=== PATIENT | female | born 1955 | race Two or more races ===

== ENCOUNTER 2016-05-01 08:41 | Emergency (ER) | payer MEDICAID, MEDICARE ==
--- NOTE | 2016-05-01 09:15 | ER Document Report ---
ED ENT - General Time seen by provider: 09:10 Mode of Arrival: Ambulatory Information source: Patient, Relative TRAVEL OUTSIDE OF THE [place]. IN LAST 30 DAYS: No - HPI Patient complains to provider of: Ear problem, Nose problem, Throat problem Onset: Other - see HPI note Onset/Duration: Gradual, Persistent Pain Level: 5 Location of pain: Ears, Nose, Sinus, Throat Associated symptoms: Congestion, Cough, Ear pain, Fever, Sore throat - General Chief Complaint: Ear Pain Stated Complaint: EAR PAIN Notes: Patient is a 60-year-old Croatian-speaking female presenting to the emergency department with complaints of ear pain, fever, and cold symptoms. Patient has had right-sided ear pain for about one week. Patient had a fever last night. Patient also complains of some congestion, cough, and sore throat. Patient speaks Croatian and her family member is translating. Patient has a history of anxiety, does not smoke, and is on no regular medications. Patient has recently moved back to the area and does not have a regular physician at this time. Patient has no known allergies. (MARY MUÑIZ) - Related Data Allergies/Adverse Reactions: No Known Allergies Allergy (Unverified 05/01/16 08:53) Past Medical History - General Information source: Patient - Social History Smoking Status: Never Smoker Cigarette use (# per day): No Chew tobacco use (# tins/day): No Frequency of alcohol use: None Drug Abuse: None Family History: None Patient has suicidal ideation: No Patient has homicidal ideation: No - Medical History Medical History: Negative Psychiatric Medical History: Reports: Hx Anxiety Surgical Hx: Negative Review of Systems - Review of Systems Constitutional: See HPI, Fever EENT: See HPI, Ear pain, Nose congestion, Throat pain Cardiovascular: No symptoms reported Respiratory: See HPI, Cough Gastrointestinal: No symptoms reported Genitourinary: No symptoms reported Female Genitourinary: No symptoms reported Musculoskeletal: No symptoms reported Skin: No symptoms reported Hematologic/Lymphatic: No symptoms reported Neurological/Psychological: No symptoms reported -: Yes All other systems reviewed and negative Physical Exam - Vital signs Interpretation: Normal - General General appearance: Alert, Other - appears uncomfortable In distress: Mild - HEENT Head: Normocephalic, Atraumatic Eyes: Normal Pupils: PERRL Tympanic membrane: Other - Right TM is bulging and erythematous Left TM is slightly retracted Nasal: Other - sinus congestion Mouth/Lips: Normal Mucous membranes: Normal Pharynx: Erythema. No: Exudate Neck: Normal - Respiratory Respiratory status: No respiratory distress Chest status: Nontender Breath sounds: Nonproductive cough, Rhonchi, Wheezing Chest palpation: Normal - Cardiovascular Rhythm: Regular Heart sounds: Normal auscultation Murmur: No - Abdominal Inspection: Normal Distension: No distension Bowel sounds: Normal Tenderness: Nontender Organomegaly: No organomegaly - Back Back: Normal, Nontender - Extremities General upper extremity: Normal inspection, Normal ROM, Normal strength General lower extremity: Normal inspection, Normal ROM, Normal strength - Neurological Neuro grossly intact: Yes Cognition: Normal Orientation: AAOx4 Gormania Coma Scale Eye Opening: Spontaneous Guevara Coma Scale Verbal: Oriented Gormania Coma Scale Motor: Obeys Commands Gormania Coma Scale Total: 15 Speech: Normal - Psychological Associated symptoms: Normal affect, Normal mood - Skin Skin Temperature: Warm Skin Moisture: Dry - Vital signs Vitals: Temp Pulse Resp BP Pulse Ox 98.6 F 84 18 119/60 96 05/01/16 09:30 05/01/16 09:30 05/01/16 09:30 05/01/16 09:30 05/01/16 09:30 Discharge - Discharge Clinical Impression: Right acute otitis media Upper respiratory tract infection Qualifiers: URI type: unspecified viral URI Qualified Code(s): J06.9 - Acute upper respiratory infection, unspecified Condition: Stable Disposition: HOME, SELF-CARE Additional Instructions: Upper Respiratory Illness You have a viral infection of the respiratory passages -- a "cold." This common infection causes nasal congestion, drainage, and often sore throat and cough. It is caused by a virus and is highly contagious. The disease usually lasts a week or more, though the worst symptoms are usually over in 3 or 4 days. There is no "cure" for the viral infection -- it must run its course. If there is a complication, such as bacterial infection in the nose, sinuses, middle ear, or bronchial tubes, antibiotics may be required, but antibiotics won 't affect the virus. If you smoke, you should STOP!! Drink plenty of fluids. A humidifier may help. An expectorant medication or decongestant may make you more comfortable. Use acetaminophen or ibuprofen for fever or aches. See the doctor if fever persists over two or three days, if there is any significant worsening of your symptoms, or if you simply fail to improve as expected. Otitis Media: You have a middle ear infection (otitis media). This is usually a complication of a cold or sore throat. The middle ear cavity becomes filled with infection. Pressure and stretching of the ear drum cause pain. Antibiotics are required. A 10 day course is usually prescribed. A decongestant may be recommended if you have a "runny nose." You may need anesthetic drops or other pain medication. A follow-up exam may be recommended to make sure the infection has completely cleared. If the ear begins to drain, it means the ear drum has ruptured. This will usually heal spontaneously. However, it means you should keep the ear dry until re-examined by a doctor. Call the physician or return for examination at once if there is severe headache, stiff neck, confusion, increasing fever, or dizziness. You should improve significantly within two days. If you're not better, call the doctor. TAKE THE MEDICATIONS PRESCRIBED. DRINK PLENTY OF FLUIDS. REST. FOLLOW UP WITH A LOCAL MEDICAL DOCTOR IF NOT IMPROVING. RETURN TO THE EMERGENCY ROOM IF ANY NEW OR WORSENING SYMPTOMS. Prescriptions: Amoxicillin Trihydrate [Amoxil 500 mg Capsule] 500 mg PO TID #30 cap Hydrocodone/Acetaminophen [Columbia 5-325 mg Tablet] 1 tab PO Q4 PRN #15 tablet PRN Reason: Prednisone [Deltasone 10 mg Tablet] 10 mg PO ASDIR PRN #21 tablet PRN Reason: Scribe Attestation: 05/01/16 09:19 I personally performed the services described in the documentation, reviewed and edited the documentation which was dictated to the scribe in my presence, and it accurately records my words and actions. (JOSÉ MIGUEL LOMELI) Scribe Documentation - Scribe Written by Juan:: Mary Muñiz 05/01/16 10:00 acting as scribe for :: Aletha
[2016-05-01 09:41] VITALS: BP 119/60
== END 2016-05-01 09:30 | disposition home or self-care (01) ==
LOC: ER 08:41
DX: H66.91 Otitis media, unspecified, right ear (principal); J06.9 Acute upper respiratory infection, unspecified; R50.9 Fever, unspecified
CPT/HCPCS: 99282

== ENCOUNTER → 2016-07-21 | Outpatient (CLI) | payer MEDICARE, MEDICAID | LOC: WI 13:20 | PROVIDERS: ATTEND Family Medicine | DX: Z12.31 Encounter for screening mammogram for malignant neoplasm of breast (principal) | CPT/HCPCS: 77067; G0202 ==

== ENCOUNTER → 2017-07-24 | Outpatient (CLI) | payer MEDICARE, MEDICAID ==
--- NOTE | 2017-07-24 10:10 | WOMENS IMAGING REPORT ---
EXAM DESCRIPTION: BONE DENSITY HIP/SPINE COMPLETED DATE/TIME: 07/24/2017 9:19 am REASON FOR STUDY: OSTEOPOROSIS Z12.31 ENCNTR SCREEN MAMMOGRAM FOR MALIGNANT NEOPLASM OF TISH M81.0 AGE-RELATED OSTEOPOROSIS W/O CURRENT PATHOLOGICAL FRAC COMPARISON: None. TECHNIQUE: Dual-Energy X-ray Absorptiometry (DEXA) of the AP Spine and Hip. LIMITATIONS: None. FINDINGS: LUMBAR SPINE: The bone mineral density (BMD) measured from L1-L4 in the AP projection correlates with a T-score of -3.4, which is osteoporosis as defined by the World Health Organization. HIP: The bone mineral density (BMD) measured in the left hip correlates with a T-score of -1.7, which is o steopenia as defined by the World Health Organization. IMPRESSION: 1. LUMBAR SPINE: OSTEOPOROSIS. 2. HIP: OSTEOPENIA. COMMENT: The World Health Organization defines low BMD as follows: T-score: Normal: Greater than -1.0 Osteopenia: Between -1.0 and -2.5 Osteoporosis: Less than -2.5 without fractures Established osteoporosis: Less than -2.5 with fractures In general, you may wish to consider: Diagnosis Treatment Follow-up DEXA Normal BMD Prevention 2-3 years Osteopenia Prevention/Therapy 1-2 years Osteoporosis Therapy Yearly TECHNICAL DOCUMENTATION: JOB ID: [id number] [employer]- All Rights Reserved Reading location - IP/workstation name: [email or web address]
--- NOTE | 2017-07-24 10:14 | WOMENS IMAGING REPORT ---
EXAM DESCRIPTION: BILAT SCREENING MAMMO W/CAD COMPLETED DATE/TIME: 07/24/2017 9:19 am REASON FOR STUDY: SCREENING MAMMO Z12.31 ENCNTR SCREEN MAMMOGRAM FOR MALIGNANT NEOPLASM OF TISH M81. 0 AGE-RELATED OSTEOPOROSIS W/O CURRENT PATHOLOGICAL FRAC COMPARISON: 2009- 2012, 2016 TECHNIQUE: Standard craniocaudal and mediolateral oblique views of each breast recorded using digita l acquisition. LIMITATIONS: None. FINDINGS: No masses, calcifications or architectural distortion. No areas of suspicion. Read with the assistance of CAD. .[facility] - R2 Cenova Version 1.3 .[facility] Imaging - R2 Cenova Version 1.3 .[facility] - R2 Cenova Version 2.4 .[facility] [place] - R2 Cenova Version 2.4 .ON LICENSE OF [facility] - R2 Form Drafter Version 9.2 IMPRESSION: NORMAL MAMMOGRAM. BIRADS 1. BREAST DENSITY: b. There are scattered areas of fibroglandular density. BIRAD: 1 NEGATIVE RECOMMENDATION: ROUTINE SCREENING COMMENT: The patient has been notified of the results by letter per MQSA requirements. Additional no tification policies are in place for contacting patient with suspicious or incomplete findings. Quality ID #[id number]: The [employer] [place] [employer] recommends an annual screening mammogram for women aged 40 years or over. This facility utilizes a reminder system to ensure that all patients receive reminder letters, and/or direct phone calls for appointments. This includes reminders for routine scr eening mammograms, diagnostic mammograms, or other Breast Imaging Interventions when appropriate. Th is patient will be placed in the appropriate reminder system. The [employer] [place] [employer] (ACR) has developed recommendations for screening MRI of the breast s in certain patient populations, to be used in conjunction with mammography. Breast MRI surveillanc e may be appropriate for women with more than 20% lifetime risk of developing breast cancer as deter mined by genetic testing, significant family history of the disease, or history of mantle radiation f or Hodgkins Disease. ACR Practice Guidelines 2008. TECHNICAL DOCUMENTATION: FINDING NUMBER: (1) ASSESSMENT: (1) JOB ID: [id number] [employer]- All Rights Reserved Reading location - IP/workstation name: [facility]
== END ==
LOC: WI 08:50
PROVIDERS: ATTEND Family Medicine
DX: Z12.31 Encounter for screening mammogram for malignant neoplasm of breast (principal); M81.0 Age-related osteoporosis without current pathological fracture
CPT/HCPCS: 77067; 77080

== ENCOUNTER 2017-08-15 18:50 | Emergency (ER) | payer MEDICARE, MEDICAID ==
[2017-08-15] MEDS ORDERED: LIDOCAINE 4%/TETRACAINE 0.5%/EPI 0.18% 5 ML TOPICAL SOLN TOP ONE (19:11)
[2017-08-15] MEDS ORDERED: DIPH/PERTUSS(ACELL)/TETANUS VAC/PF 0.5 ML SYR (>=10YO) IM ONE (19:16)
--- NOTE | 2017-08-15 19:16 | ER Document Report ---
HPI - HPI Patient complains to provider of: Leg bleeding Onset: This afternoon Onset/Duration: Persistent Pain Level: 3 Context: Patient was shaving her leg this evening and accidentally cut her leg over a spider vein. Patient states wound has continued to bleed for the past hour. Patient denies taking any blood thinning medications or aspirin. Associated Symptoms: Other - Leg wound bleeding Exacerbated by: Denies Relieved by: Denies Similar symptoms previously: No Recently seen / treated by doctor: No - ROS ROS below otherwise negative: Yes Systems Reviewed and Negative: Yes All other systems reviewed and negative - DERM Skin Problems: Laceration Past Medical History - General Information source: Patient, Relative - Social History Smoking Status: Never Smoker Frequency of alcohol use: None Drug Abuse: None Occupation: None Lives with: Family Family History: None Renal/ Medical History: Denies: Hx Peritoneal Dialysis Psychiatric Medical History: Reports: Hx Anxiety Surgical Hx: Negative Vertical Provider Document - CONSTITUTIONAL Agree With Documented VS: Yes Exam Limitations: No Limitations General Appearance: WD/WN, No Apparent Distress - INFECTION CONTROL TRAVEL OUTSIDE OF THE [place] IN LAST 30 DAYS: No - HEENT HEENT: Atraumatic, Normocephalic - NECK Neck: Normal Inspection - RESPIRATORY Respiratory: No Respiratory Distress - CARDIOVASCULAR Pulses: Normal: Dorsalis pedis - MUSCULOSKELETAL/EXTREMETIES Musculoskeletal/Extremeties: TAYLOR VILLEGAS - NEURO Level of Consciousness: Awake, Alert, Appropriate Motor/Sensory: No Motor Deficit - DERM Integumentary: Warm, Dry, Laceration - Superficial laceration to posterior aspect of left leg with capillary bleeding, bleeding able to be controlled with pressure Course - Re-evaluation Re-evalutation: 08/15/17 20:01 Wound cauterized with silver nitrate stick. Bleeding stopped, patient tolerated procedure well. - Vital Signs Vital signs: Temp Pulse Resp BP Pulse Ox 98.4 F 90 17 147/67 H 98 08/15/17 18:55 08/15/17 18:55 08/15/17 18:55 08/15/17 18:55 08/15/17 18:55 Discharge - Discharge Clinical Impression: Superficial laceration Condition: Stable Disposition: HOME, SELF-CARE Instructions: Non-Sutured Laceration ([facility]), Tetanus Immunization Given ([facility]) Additional Instructions: Return immediately for any new or worsening symptoms Followup with your primary care provider, call tomorrow to make a followup appointment Referrals: IVORY GOMEZ, DO [Primary Care Provider] - Follow up as needed
[2017-08-15 20:16] VITALS: BP 140/80
== END 2017-08-15 20:15 | disposition home or self-care (01) ==
LOC: ER 18:50
DX: S81.812A Laceration without foreign body, left lower leg, initial encounter (principal); W27.8XXA Contact with other nonpowered hand tool, initial encounter; Y93.E8 Activity, other personal hygiene; Z23 Encounter for immunization
CPT/HCPCS: 99282; J3490

== ENCOUNTER 2018-01-03 15:54 | Emergency (ER) | payer MEDICARE, MEDICAID ==
[2018-01-03] MEDS ORDERED: MECLIZINE HCL 12.5 MG TABLET PO ONE (16:27)
--- NOTE | 2018-01-03 16:29 | ER Document Report ---
ED Dizziness/Weakness - General Chief Complaint: Dizziness Stated Complaint: DIZZINESS Time Seen by Provider: 01/03/18 16:13 Mode of Arrival: Ambulatory Information source: Patient, Relative Notes: Chief complaint: Feeling dizzy History of complain:( obtained from----patient) 62 years old female with a history of anxiety, depression on medication, from [facility], living [place] this country [place] years, presents today with last 2 days of blurred vision and dizziness, spinning sensation. No ringing in the years, no focal weakness numbness tingling sensation. Denies any nausea vomiting. Denies any palpitation or diaphoresis. Denies any other constitutional symptoms Onset: As above Duration: 2 days Severity: Mild to moderate Quality: Dizzy Context: Unknown unknown Exacerbating factor and relieving factors: Unknown REVIEW OF SYSTEMS: CONSTITUTIONAL : Denies fever, chills, or sweats. Denies recent illness. EENT: Denies eye, ear, throat, or mouth pain or symptoms. Denies nasal or sinus congestion or discharge. Denies throat, tongue, or mouth swelling or difficulty swallowing. CARDIOVASCULAR: Denies chest pain. Denies palpitations or racing or irregular heart beat. Denies ankle edema. RESPIRATORY: Denies cough, cold, or chest congestion. Denies shortness of breath, difficulty breathing, or wheezing. GASTROINTESTINAL: Denies distention. Denies nausea, vomiting, or diarrhea. Denies blood in vomitus, stools, or per rectum. Denies black, tarry stools. Denies constipation. GENITOURINARY: Denies difficulty urinating, painful urination, burning, frequency, blood in urine, or discharge. FEMALE GENITOURINARY: Denies vaginal bleeding, heavy or abnormal periods, irregular periods. Denies vaginal discharge or odor. MUSCULOSKELETAL: Denies back or neck pain or stiffness. Denies joint pain or swelling. SKIN: Denies rash, lesions or sores. HEMATOLOGIC : Denies easy bruising or bleeding. LYMPHATIC: Denies swollen, enlarged glands. NEUROLOGICAL: Denies confusion or altered mental status. Denies passing out or loss of consciousness. Denies dizziness or lightheadedness. Denies headache. Denies weakness or paralysis or loss of use of either side. Denies problems with gait or speech. Denies sensory loss, numbness, or tingling. Denies seizures. PSYCHIATRIC: Denies anxiety or stress. Denies depression, suicidal ideation, or homicidal ideation. ALL OTHER SYSTEMS REVIEWED AND NEGATIVE. PHYSICAL EXAMINATION: GENERAL: Well-appearing, well-nourished and in no acute distress. HEAD: Atraumatic, normocephalic. EYES: Pupils equal round and reactive to light, extraocular movements intact, conjunctiva are normal. ENT: Nares patent, oropharynx clear without exudates. Moist mucous membranes. NECK: Normal range of motion, supple without lymphadenopathy LUNGS: Breath sounds clear to auscultation bilaterally and equal. No wheezes rales or rhonchi. HEART: Regular rate and rhythm without murmurs ABDOMEN: Soft, nontender, nondistended abdomen. No guarding, no rebound. No masses appreciated. Examination of genitals-deferred Musculoskeletal: Normal range of motion, no pitting or edema. No cyanosis. NEUROLOGICAL: Cranial nerves grossly intact. Normal speech, normal gait. Normal sensory, motor exams PSYCH: Normal mood, normal affect. SKIN: Warm, Dry, normal turgor, no rashes or lesions noted. Dictation was performed using [employer] voice recognition software TRAVEL OUTSIDE OF THE [place].S. IN LAST 30 DAYS: No - HPI Notes: Dictated - Related Data Allergies/Adverse Reactions: No Known Allergies Allergy (Verified 01/03/18 15:56) Past Medical History - Social History Smoking Status: Never Smoker Chew tobacco use (# tins/day): No Frequency of alcohol use: None Drug Abuse: None Family History: None, Reviewed & Not Pertinent Patient has suicidal ideation: No Patient has homicidal ideation: No Neurological Medical History: Reports: Hx Migraine Renal/ Medical History: Denies: Hx Peritoneal Dialysis Psychiatric Medical History: Reports: Hx Anxiety Review of Systems - Review of Systems Notes: Dictated Physical Exam - Vital signs Vitals: Temp Pulse Resp BP Pulse Ox 98.6 F 77 16 138/65 H 98 01/03/18 15:58 01/03/18 15:58 01/03/18 15:58 01/03/18 15:58 01/03/18 15:58 - Notes Notes: Dictated Course - Vital Signs Vital signs: Temp Pulse Resp BP Pulse Ox 98.6 F 77 16 138/65 H 98 01/03/18 15:58 01/03/18 15:58 01/03/18 15:58 01/03/18 15:58 01/03/18 15:58 Discharge - Discharge Clinical Impression: Dizziness, 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 Symptoms of stroke can include visual changes, confusion, difficulty with speech, and weakness or numbness of the face, arm, or leg. Some strokes are extremely serious, while others cause hardly any symptoms at all. Not all strokes require hospitalization. The symptoms of stroke usually improve with time. Physical therapy and exercise help you recover. To avoid further episodes, you may be placed on medication to slow blood clotting. This may include aspirin or sometimes other "blood thinning" medicine. Further evaluation is often necessary to see where the blood clots are originating. Call 911 or go to the nearest emergency room at once if you have any stroke symptoms. You should return if there is increasing confusion or inappropriate sleepiness, spreading areas of weakness, increasing headache, decreasing vision, or vomiting. Referrals: IVORY GOMEZ, DO [Primary Care Provider] - Follow up as needed
--- NOTE | 2018-01-03 17:13 | RADIOLOGY REPORT (SQ) ---
EXAM DESCRIPTION: CT HEAD WITHOUT COMPLETED DATE/TIME: 01/03/2018 5:02 pm REASON FOR STUDY: Dizziness COMPARISON: None. TECHNIQUE: Axial images acquired through the brain without intravenous contrast. Images reviewed wi th bone, brain and subdural windows. Additional sagittal and coronal reconstructions were generated. Images stored on PACS. All CT scanners at this facility use dose modulation, iterative reconstruction, and/or weight based d osing when appropriate to reduce radiation dose to as low as reasonably achievable (ALARA). [facility]: Dose Right [facility]: CareDose [facility]: Dose Right [facility]: Teradose 4D [facility]: Smart [employer] RADIATION DOSE: CT Rad equipment meets quality standard of care and radiation dose reduction techniq ues were employed. CTDIvol: 53.2 mGy. DLP: 937 mGy-cm. mGy. LIMITATIONS: None. FINDINGS: VENTRICLES: Normal size and contour. CEREBRUM: No masses. No hemorrhage. No midline shift. No evidence for acute infarction. Normal gra y/white matter differentiation. No areas of low density in the white matter. Subtle high attenuation in the left basal ganglia is most consistent with calcification. CEREBELLUM: There is decreased attenuation the left cerebellar hemisphere. Evolving infarct is suspe cted. EXTRAAXIAL SPACES: No fluid collections. No masses. ORBITS AND GLOBE: No intra- or extraconal masses. Normal contour of globe without masses. CALVARIUM: No fracture. PARANASAL SINUSES: There is chronic appearing mucosal thickening in the left maxillary sinus. Minima l coastal thickening in the right maxillary sinus. SOFT TISSUES: No mass or hematoma. OTHER: No other significant finding. IMPRESSION: 1. Decreased attenuation in the left cerebellar hemisphere evolving infarct is suspecte d. It is possible this is chronic there are no old films available for comparison. EVIDENCE OF ACUTE STROKE: NO. COMMENT: Quality ID # [id number]: Final reports with documentation of one or more dose reduction techniques (e.g., Automated exposure control, adjustment of the mA and/or kV according to patient size, use of iterative reconstruction technique) TECHNICAL DOCUMENTATION: JOB ID: [id number] [email or web address]- All Rights Reserved Reading location - IP/workstation name: [email or web address]
[2018-01-03 17:38] VITALS: BP 129/61
== END 2018-01-03 17:38 | disposition home or self-care (01) ==
LOC: ER 15:54
DX: R42 Dizziness and giddiness (principal); H53.8 Other visual disturbances; Z86.73 Personal history of transient ischemic attack (TIA), and cerebral infarction without residual deficits; F41.9 Anxiety disorder, unspecified; F32.9 Major depressive disorder, single episode, unspecified; Z79.899 Other long term (current) drug therapy
CPT/HCPCS: 99284; 70450; A9270; J3490

== ENCOUNTER 2018-01-06 16:57 | Emergency (ER) | payer MEDICARE, MEDICAID ==
--- NOTE | 2018-01-06 18:16 | ER Document Report ---
ED Medical Screen (RME) - General Chief Complaint: Headache Stated Complaint: WEAKNESS Time Seen by Provider: 01/06/18 17:49 Mode of Arrival: Ambulatory Information source: Patient, [facility] Records Notes: 62-year-old female presents for the second time this week with complaint of head pressure and forehead numbness. She was seen on January 03, 2018 and discharged home with a diagnosis of stroke from pit. CT scan was reviewed and read as decreased attenuation of the left cerebellar hemisphere with evolving infarction suspected. I have greeted and performed a rapid initial assessment of this patient. A comprehensive ED assessment and evaluation of the patient, analysis of test results and completion of medical decision making process we will be contacted by additional ED providers. PHYSICAL EXAMINATION: Vital signs reviewed-within normal limits GENERAL: Well-appearing, well-nourished and in no acute distress. LUNGS: No respiratory distress Musculoskeletal: Normal range of motion NEUROLOGICAL: Sabino nerves II through XII intact. PSYCH: Normal mood, normal affect. SKIN: Warm, Dry, normal turgor, no rashes or lesions noted. TRAVEL OUTSIDE OF THE [place] IN LAST 30 DAYS: No - HPI Onset: Last week Onset/Duration: Gradual, Persistent Quality of pain: Pressure Associated Symptoms: Headache Exacerbated by: Denies Relieved by: Denies Similar symptoms previously: Yes Recently seen / treated by doctor: Yes - 01/03/2018 - Related Data Smoking: Non-smoker Frequency of alcohol use: None Drug Abuse: None Allergies/Adverse Reactions: No Known Allergies Allergy (Verified 01/06/18 16:58) Past Medical History - Social History Chew tobacco use (# tins/day): No Frequency of alcohol use: None Drug Abuse: None - Past Medical History Cardiac Medical History: Reports: Hx Hypercholesterolemia Neurological Medical History: Reports: Hx Migraine Renal/ Medical History: Denies: Hx Peritoneal Dialysis Musculoskeltal Medical History: Reports Hx Arthritis Psychiatric Medical History: Reports: Hx Anxiety, Hx Depression Physical Exam - Vital signs Vitals: Temp Pulse Resp BP Pulse Ox 97.7 F 75 18 128/101 H 97 01/06/18 17:10 01/06/18 17:10 01/06/18 17:10 01/06/18 17:10 01/06/18 17:10 Course - Vital Signs Vital signs: Temp Pulse Resp BP Pulse Ox 97.7 F 75 18 145/71 H 97 01/06/18 17:10 01/06/18 17:10 01/06/18 17:10 01/06/18 18:14 01/06/18 17:10 Doctor's Discharge - Discharge Referrals: IVORY GOMEZ, [Primary Care Provider] - Follow up as needed
[2018-01-06 18:48] LABS: ABSOLUTE BASOPHILS # (AUTO) 0.2 10^3/uL (0.0-0.2); ABSOLUTE EOSINOPHILS # (AUTO) 0.4 10^3/uL (0.0-0.6); ABSOLUTE LYMPHOCYTES (AUTO) 3.6 10^3/uL (0.5-4.7); ABSOLUTE NEUT (AUTO) 5.4 10^3/uL (1.7-8.2); BASOPHILS % (AUTO) 1.5 % (0-2); EOSINOPHILS % (AUTO) 3.9 % (0-6); HEMATOCRIT 41.1 % (36.0-47.0); HEMOGLOBIN 14.3 g/dL (12.0-15.5); LYMPHOCYTES % (AUTO) 33.9 % (13-45); MEAN CORPUSCULAR HEMOGLOBIN 32.2 pg (27.0-33.4); MEAN CORPUSCULAR HGB CONC 34.7 g/dL (32.0-36.0); MEAN CORPUSCULAR VOLUME 93 fl (80-97); MONOCYTES % (AUTO) 9.6 % (3-13); PLATELET COUNT 378 10^3/uL (150-450); RED BLOOD COUNT 4.42 10^6/uL (3.72-5.28); SEGMENTED NEUTROPHILS % (AUTO) 51.1 % (42-78); TOTAL CELLS COUNTED % (AUTO) 100 %; WHITE BLOOD COUNT 10.5 10^3/uL (4.0-10.5)
[2018-01-06] MEDS ORDERED: METOCLOPRAMIDE HCL INJ/PF 10 MG/2 ML SDV IV ONE (19:02)
--- NOTE | 2018-01-06 19:10 | RADIOLOGY REPORT (SQ) ---
EXAM DESCRIPTION: CT HEAD WITHOUT COMPLETED DATE/TIME: 01/06/2018 6:56 pm REASON FOR STUDY: stroke dizziness, vertigo, evaluate for cerebellar infarct COMPARISON: CT brain 01/03/2018 TECHNIQUE: Axial images acquired through the brain without intravenous contrast. Images reviewed wi th bone, brain and subdural windows. Additional sagittal and coronal reconstructions were generated. Images stored on PACS. All CT scanners at this facility use dose modulation, iterative reconstruction, and/or weight based d osing when appropriate to reduce radiation dose to as low as reasonably achievable (ALARA). [facility]: Dose Right [facility]: CareDose [facility]: Dose Right [facility]: Teradose 4D [facility]: Smart kites.io RADIATION DOSE: CT Rad equipment meets quality standard of care and radiation dose reduction techniq ues were employed. CTDIvol: 53.2 mGy. DLP: 1017 mGy-cm. mGy. LIMITATIONS: None. FINDINGS: VENTRICLES: Normal size and contour. CEREBRUM: No masses. No hemorrhage. No midline shift. No evidence for acute infarction. Normal gra y/white matter differentiation. No areas of low density in the white matter. CEREBELLUM: No masses. No hemorrhage. No alteration of density. No evidence for acute infarction. EXTRAAXIAL SPACES: No fluid collections. No masses. ORBITS AND GLOBE: No intra- or extraconal masses. Normal contour of globe without masses. CALVARIUM: No fracture. PARANASAL SINUSES: No fluid or mucosal thickening. SOFT TISSUES: No mass or hematoma. OTHER: No other significant finding. IMPRESSION: NORMAL BRAIN CT WITHOUT CONTRAST. EVIDENCE OF ACUTE STROKE: NO. COMMENT: Pertinent findings on the imaging study reported as a CRITICAL RESULT to DR MOLINA at19:00 on 01/06/2018. Category of Critical Result: CT CODE STROKE Quality ID # 436: Final reports with documentation of one or more dose reduction techniques (e.g., Au tomated exposure control, adjustment of the mA and/or kV according to patient size, use of iterative reconstruction technique) TECHNICAL DOCUMENTATION: JOB ID: [id number] [employer]- All Rights Reserved Reading location - IP/workstation name: [email or web address]
--- NOTE | 2018-01-06 19:22 | EKG REPORT ---
SEVERITY:- ABNORMAL ECG - SINUS RHYTHM PROMINENT P WAVES, NONDIAGNOSTIC : Confirmed by: Reema Franklin 06-Jan-2018 19:21:42
[2018-01-06] MEDS ORDERED: KETOROLAC TROMETHAMINE INJ/PF 30 MG/1 ML SDV IV ONE (19:29)
--- NOTE | 2018-01-06 19:33 | ER Document Report ---
ED General - General Chief Complaint: Headache Stated Complaint: WEAKNESS Time Seen by Provider: 01/06/18 17:49 Mode of Arrival: Ambulatory Notes: Patient is a 62-year-old female with a past medical history of hypertension who who presents with 2 days of a global, throbbing, aching headache with intermittent associated paresthesias over her forehead. She reports that she was seen 2 days ago, diagnosed with a possible stroke although states she is confused by this diagnosis as she never had any weakness, numbness, difficulty walking or any other symptoms that would suggest this diagnosis. Headache was gradual in onset, has been relatively constant over the last 24 hours. Nothing has been tried to improve the headache. It is worsened by lights, sound movement. She states that she has a long-standing history of similar headaches in the past. She has not seen her general doctor regarding today's concerns. The history and physical exam was obtained by the provider using Turkish. A formal hospital stock analyst was offered to the patient and any family at the bedside at the beginning of the encounter and was declined. TRAVEL OUTSIDE OF THE [place] IN LAST 30 DAYS: No - Related Data Allergies/Adverse Reactions: No Known Allergies Allergy (Verified 01/06/18 16:58) Past Medical History - General Information source: Patient, [facility] Records - Social History Smoking Status: Never Smoker Chew tobacco use (# tins/day): No Frequency of alcohol use: None Drug Abuse: None Lives with: Family Family History: Reviewed & Not Pertinent Patient has suicidal ideation: No Patient has homicidal ideation: No - Past Medical History Cardiac Medical History: Reports: Hx Hypercholesterolemia Neurological Medical History: Reports: Hx Migraine Renal/ Medical History: Denies: Hx Peritoneal Dialysis Musculoskeletal Medical History: Reports Hx Arthritis Psychiatric Medical History: Reports: Hx Anxiety, Hx Depression Review of Systems - Review of Systems Notes: Constitutional: Negative for fever. HENT: Negative for sore throat. Eyes: Negative for visual changes. Cardiovascular: Negative for chest pain. Respiratory: Negative for shortness of breath. Gastrointestinal: Negative for abdominal pain, vomiting or diarrhea. Genitourinary: Negative for dysuria. Musculoskeletal: Negative for back pain. Skin: Negative for rash. Neurological: Positive for headache 10 point ROS negative except as marked above and in HPI. Physical Exam - Vital signs Vitals: Temp Pulse Resp BP Pulse Ox 97.7 F 75 18 128/101 H 97 01/06/18 17:10 01/06/18 17:10 01/06/18 17:10 01/06/18 17:10 01/06/18 17:10 Interpretation: Normal Notes: PHYSICAL EXAMINATION: GENERAL: Well-appearing, well-nourished and in no acute distress. HEAD: Atraumatic, normocephalic. EYES: Pupils equal round and reactive to light, extraocular movements intact, sclera anicteric, conjunctiva are normal. ENT: nares patent, oropharynx clear without exudates. Moist mucous membranes. NECK: Normal range of motion, supple without lymphadenopathy LUNGS: Breath sounds clear to auscultation bilaterally and equal. No wheezes rales or rhonchi. HEART: Regular rate and rhythm without murmurs ABDOMEN: Soft, nontender, normoactive bowel sounds. No guarding, no rebound. No masses appreciated. EXTREMITIES: Normal range of motion, no pitting or edema. No cyanosis. NEUROLOGICAL: Face symmetric. Tongue protrudes midline. Extraocular motions intact. Pupils are 2 mm and equally reactive. Normal speech, normal gait. 5 out of 5 strength in both the distal and proximal upper and lower extremities bilaterally. Sensation is grossly intact throughout. Finger to nose testing normal. Pronator drift normal. PSYCH: Normal mood, normal affect. SKIN: Warm, Dry, normal turgor, no rashes or lesions noted. Course - Re-evaluation Re-evalutation: 01/06/18 19:30 Patient presents complaining of a diffuse, global headache that is been ongoing for the past 2 days. Appears to be most consistent with tension versus migrainous type headache. Headache was not maximal in onset, patient has no focal neurologic deficits, no nuchal rigidity, vital signs within normal limits , no papilledema, and patient is overall well in appearance. Based on clinical history and examination I do not suspect an acute subarachnoid hemorrhage, dural venous sinus thrombosis, acute meningitis, or intercranial mass. Patient was seen 2 days ago, diagnosed with a stroke out of triage based on the CT report with no further workup. However, the CT scan obtained today is normal and I did speak directly with the radiologist Dr. Danielle who states that she questions the initial CT report. The clinical history from the patient and the daughter obtained in Turkish at the bedside is not all consistent with a stroke either today nor 2 days ago. At no point did the patient ever have ataxia, vertigo, difficulty or limited ambulation, weakness or numbness. The only complaint she ever had that would be remotely consistent with a stroke with some forehead numbness but it was bilateral in nature again making this extremely unlikely to be a stroke. A complete neurologic assessment today is benign without any deficits, NIH stroke scale is 0. The patient has a long- standing history of headaches similar to today. She is adamant that there is nothing new or different about her headache today relative to headaches that she has had many times in the past over many years. She states she is simply looking for treatment for this headache as well she several days ago. Will treat with Reglan, obtain basic laboratories and plan for likely discharge home. I did initially plan to order an MRI on the patient due to concern from the initial CT read but given her examination and clinical history do not believe that this test is currently indicated. The patient has likewise refused the scan stating that she is severely claustrophobic and would not be able to tolerate it. - Vital Signs Vital signs: Temp Pulse Resp BP Pulse Ox 97.7 F 75 20 116/62 98 01/06/18 17:10 01/06/18 17:10 01/06/18 20:09 01/06/18 20:09 01/06/18 20:09 - Laboratory Result Diagrams: 01/06/18 18:18 01/06/18 18:18 - Diagnostic Test Radiology reviewed: Image reviewed, Reports reviewed Radiology results interpreted by me: 01/06/18 20:31 CT head: No acute intracranial abnormality Chest x-ray: No acute infiltrate or pneumothorax - EKG Interpretation by Me Additional EKG results interpreted by me: 01/06/18 20:33 Sinus rhythm. Rate 87. No ST elevations or. QTC 405. Discharge - Discharge Clinical Impression: Headache Qualifiers: Headache type: unspecified Headache chronicity pattern: acute headache Intractability: not intractable Qualified Code(s): R51 - Headache Condition: Good Disposition: HOME, SELF-CARE Additional Instructions: You have been seen in the Emergency Department (ED) for a headache. Please use Tylenol (acetaminophen) or Motrin (ibuprofen) as needed for symptoms, but only as written on the box. As we have discussed, please follow up with your primary care doctor as soon as possible regarding today's ED visit and your headache symptoms. Call your doctor or return to the ED if you have a worsening headache, sudden and severe headache, confusion, slurred speech, facial droop, weakness or numbness in any arm or leg, extreme fatigue, or other symptoms that concern you. Prescriptions: Butalb/Acetaminophen/Caffeine [Fioricet (50-325-40 mg) Tablet] 1 tab PO Q6HP PRN #20 tab PRN Reason: Referrals: IVORY GOMEZ, [Primary Care Provider] - Follow up tomorrow
--- NOTE | 2018-01-06 20:22 | RADIOLOGY REPORT (SQ) ---
EXAM DESCRIPTION: CHEST SINGLE VIEW COMPLETED DATE/TIME: 01/06/2018 6:54 pm REASON FOR STUDY: stroke COMPARISON: None. EXAM PARAMETERS: NUMBER OF VIEWS: One view. TECHNIQUE: Single frontal radiographic view of the chest acquired. RADIATION DOSE: NA LIMITATIONS: None. FINDINGS: LUNGS AND PLEURA: No opacities, masses or pneumothorax. No pleural effusion. MEDIASTINUM AND HILAR STRUCTURES: No masses. Contour normal. HEART AND VASCULAR STRUCTURES: Heart normal in size. Normal vasculature. BONES: No acute findings. HARDWARE: None in the chest. OTHER: No other significant finding. IMPRESSION: NO ACUTE RADIOGRAPHIC FINDING IN THE CHEST. TECHNICAL DOCUMENTATION: JOB ID: [id number] [email or web address]- All Rights Reserved Reading location - IP/workstation name: [email or web address]
[2018-01-06 20:27] LABS: ALANINE AMINOTRANSFERASE 25 U/L (9-52); ALBUMIN 4.3 g/dL (3.5-5.0); ALKALINE PHOSPHATASE 92 U/L (38-126); ANION GAP 10 (5-19); ASPARTATE AMINO TRANSFERASE 27 U/L (14-36); BILIRUBIN,DIRECT 0.4 mg/dL (0.0-0.4); BILIRUBIN,TOTAL 0.4 mg/dL (0.2-1.3); BLOOD UREA NITROGEN 12 mg/dL (7-20); CALCIUM 9.4 mg/dL (8.4-10.2); CARBON DIOXIDE 25 mmol/L (22-30); CHLORIDE 103 mmol/L (98-107); CREATINE KINASE 53 U/L (30-135); GLUCOSE 117 mg/dL (75-110); POTASSIUM 3.9 mmol/L (3.6-5.0); TOTAL PROTEIN 7.5 g/dL (6.3-8.2)
[2018-01-06 20:39] LABS: CREATINE KINASE MB 1.04 ng/mL (<4.55)
[2018-01-06 20:40] LABS: TROPONIN I < 0.012 ng/mL
[2018-01-06 21:53] VITALS: BP 106/53
== END 2018-01-06 21:20 | disposition home or self-care (01) ==
LOC: ER 16:57
DX: R51 Headache (principal); R53.1 Weakness; I10 Essential (primary) hypertension; R20.0 Anesthesia of skin
CPT/HCPCS: 93005; 99285; 96374; 96375; 36415; 82553; 82550; 85025; 80053; 84484; 71045; 70450; 93010; J1885; J2765

== ENCOUNTER → 2018-01-16 | Outpatient (CLI) | payer MEDICARE, MEDICAID ==
--- NOTE | 2018-01-16 14:18 | RADIOLOGY REPORT (SQ) ---
EXAM DESCRIPTION: CAROTID DOPPLER COMPLETED DATE/TIME: 01/16/2018 2:00 pm REASON FOR STUDY: TIA G45.9 TRANSIENT CEREBRAL ISCHEMIC ATTACK, UNSPECIFIED COMPARISON: CT brain 01/06/2018 TECHNIQUE: Grayscale ultrasound, Doppler velocity and spectra, and color Doppler images acquired of the extra-cranial carotid and vertebral arteries. Images stored on PACS. LIMITATIONS: None. FINDINGS: RIGHT CAROTID CCA Velocities: Within normal limits. Right common carotid artery peak systolic velocity 0.99 m/sec ICA Velocities Peak systolic 0.87 m/s. End diastolic 0.21 m/s. Proximal ICA/CCA peak systolic ratio normal. Spectra normal. No significant plaque. LEFT CAROTID CCA Velocities: Within normal limits. Left common carotid artery peak systolic velocity 0.87 ICA Velocities Peak systolic 0.97 m/s. End diastolic 0.29 m/s. Proximal ICA/CCA peak systolic ratio normal. Spectra normal. No significant plaque. VERTEBRAL ARTERIES: Antegrade flow. Normal waveforms. SUBCLAVIAN ARTERIES: Not evaluated OTHER: No other significant finding. IMPRESSION: NO HEMODYNAMICALLY SIGNIFICANT STENOSIS. COMMENT: Quality ID #[id number]: Velocity criteria are extrapolated from the diameter data as defined by t he Society of Radiologists in Ultrasound Consensus Conference. Radiology 2003: 229; 340-346. TECHNICAL DOCUMENTATION: JOB ID: [id number] [employer]- All Rights Reserved Reading location - IP/workstation name: [email or web address]
== END ==
LOC: RAD 12:12
PROVIDERS: ATTEND Family Medicine
DX: G45.9 Transient cerebral ischemic attack, unspecified (principal)
CPT/HCPCS: 93880

== ENCOUNTER 2018-03-16 10:36 | Observation (INO) | payer MEDICARE, MEDICAID ==
--- NOTE | 2018-03-16 11:03 | ER Document Report ---
ED Medical Screen (RME) - General Chief Complaint: Headache Stated Complaint: HEADACHE/BLURRY VISION Time Seen by Provider: 03/16/18 11:01 Notes: 62 years old female presents today with transient blurred vision this morning lasting for about 3-4 minutes, with no focal neurological deficit. Has bilateral carotid bruit, otherwise no focal signs. TRAVEL OUTSIDE OF THE [place] IN LAST 30 DAYS: No - Related Data Allergies/Adverse Reactions: No Known Allergies Allergy (Verified 03/16/18 10:37) Past Medical History - Social History Frequency of alcohol use: None Drug Abuse: None - Past Medical History Cardiac Medical History: Reports: Hx Hypercholesterolemia Neurological Medical History: Reports: Hx Migraine Renal/ Medical History: Denies: Hx Peritoneal Dialysis Musculoskeltal Medical History: Reports Hx Arthritis Psychiatric Medical History: Reports: Hx Anxiety, Hx Depression Physical Exam - Vital signs Vitals: Temp Pulse Resp BP Pulse Ox 98.0 F 80 14 142/56 H 96 03/16/18 10:39 03/16/18 10:39 03/16/18 10:39 03/16/18 10:39 03/16/18 10:39 Course - Vital Signs Vital signs: Temp Pulse Resp BP Pulse Ox 98.0 F 80 14 142/56 H 96 03/16/18 10:39 03/16/18 10:39 03/16/18 10:39 03/16/18 10:39 03/16/18 10:39 Doctor's Discharge - Discharge Referrals: AKBAR GOMEZ MD [Primary Care Provider] - Follow up as needed
[2018-03-16 11:23] LABS: ABSOLUTE BASOPHILS # (AUTO) 0.1 10^3/uL (0.0-0.2); ABSOLUTE EOSINOPHILS # (AUTO) 0.1 10^3/uL (0.0-0.6); ABSOLUTE LYMPHOCYTES (AUTO) 1.9 10^3/uL (0.5-4.7); ABSOLUTE MONOCYTES (AUTO) 0.6 10^3/uL (0.1-1.4); ABSOLUTE NEUT (AUTO) 7.3 10^3/uL (1.7-8.2); BASOPHILS % (AUTO) 0.6 % (0-2); EOSINOPHILS % (AUTO) 1.1 % (0-6); HEMATOCRIT 40.3 % (36.0-47.0); HEMOGLOBIN 13.8 g/dL (12.0-15.5); LYMPHOCYTES % (AUTO) 19.1 % (13-45); MEAN CORPUSCULAR HEMOGLOBIN 31.8 pg (27.0-33.4); MEAN CORPUSCULAR HGB CONC 34.3 g/dL (32.0-36.0); MEAN CORPUSCULAR VOLUME 93 fl (80-97); MONOCYTES % (AUTO) 6.3 % (3-13); PLATELET COUNT 322 10^3/uL (150-450); RED BLOOD COUNT 4.34 10^6/uL (3.72-5.28); RED CELL DISTRIBUTION WIDTH 12.7 % (11.5-14.0); SEGMENTED NEUTROPHILS % (AUTO) 72.9 % (42-78); TOTAL CELLS COUNTED % (AUTO) 100 %; WHITE BLOOD COUNT 10.1 10^3/uL (4.0-10.5)
[2018-03-16 11:33] LABS: INTERNATIONAL RATION (INR) 0.91; PROTHROMBIN TIME 12.7 SEC (11.4-15.4)
[2018-03-16 11:51] LABS: ALANINE AMINOTRANSFERASE 19 U/L (9-52); ALBUMIN 4.8 g/dL (3.5-5.0); ALKALINE PHOSPHATASE 119 U/L (38-126); ANION GAP 17 (5-19); ASPARTATE AMINO TRANSFERASE 27 U/L (14-36); BILIRUBIN,DIRECT 0.1 mg/dL (0.0-0.4); BILIRUBIN,TOTAL 0.4 mg/dL (0.2-1.3); BLOOD UREA NITROGEN 17 mg/dL (7-20); CARBON DIOXIDE 26 mmol/L (22-30); CHLORIDE 99 mmol/L (98-107); GLUCOSE 113 mg/dL (75-110); POTASSIUM 4.1 mmol/L (3.6-5.0); SODIUM 141.7 mmol/L (137-145)
--- NOTE | 2018-03-16 11:53 | RADIOLOGY REPORT (SQ) ---
EXAM DESCRIPTION: CT HEAD WITHOUT COMPLETED DATE/TIME: 03/16/2018 11:25 am REASON FOR STUDY: Blurred vision COMPARISON: 01/06/2018 TECHNIQUE: Axial images acquired through the brain without intravenous contrast. Images reviewed wi th bone, brain and subdural windows. Additional sagittal and coronal reconstructions were generated. Images stored on PACS. All CT scanners at this facility use dose modulation, iterative reconstruction, and/or weight based d osing when appropriate to reduce radiation dose to as low as reasonably achievable (ALARA). [facility]: Dose Right [facility]: CareDose [facility]: Dose Right [facility]: Teradose 4D [facility]: Smart Kite[employer] RADIATION DOSE: CT Rad equipment meets quality standard of care and radiation dose reduction techniq ues were employed. CTDIvol: 53.2 mGy. DLP: 937 mGy-cm. mGy. LIMITATIONS: None. FINDINGS: VENTRICLES: Normal size and contour. CEREBRUM: No masses. No hemorrhage. No midline shift. No evidence for acute infarction. Normal gra y/white matter differentiation. No areas of low density in the white matter. CEREBELLUM: No masses. No hemorrhage. No alteration of density. No evidence for acute infarction. EXTRAAXIAL SPACES: No fluid collections. No masses. ORBITS AND GLOBE: No intra- or extraconal masses. Normal contour of globe without masses. CALVARIUM: No fracture. PARANASAL SINUSES: No fluid or mucosal thickening. SOFT TISSUES: No mass or hematoma. OTHER: No other significant finding. IMPRESSION: NO ACUTE INTRACRANIAL IMAGING FINDINGS. EVIDENCE OF ACUTE STROKE: NO. COMMENT: Quality ID # 436: Final reports with documentation of one or more dose reduction techniques (e.g., Automated exposure control, adjustment of the mA and/or kV according to patient size, use of iterative reconstruction technique) TECHNICAL DOCUMENTATION: JOB ID: [id number] [employer]- All Rights Reserved Reading location - IP/workstation name: [email or web address]
[2018-03-16] MEDS ORDERED: ASPIRIN 81 MG TABLET, CHEWABLE PO ONE (12:41)
[2018-03-16] MEDS ORDERED: ONDANSETRON 4 MG TAB.RAPDIS PO PRN (12:45)
[2018-03-16] MEDS ORDERED: ACETAMINOPHEN 650 MG SUPP.RECT PR PRN (12:45)
[2018-03-16] MEDS ORDERED: TEMAZEPAM 7.5 MG CAPSULE PO PRN (12:45)
--- NOTE | 2018-03-16 12:46 | ER Document Report ---
ED General - General Chief Complaint: Headache Stated Complaint: HEADACHE/BLURRY VISION Time Seen by Provider: 03/16/18 11:01 Notes: Patient is a 62-year-old female with history of hypertension and hyperlipidemia that presents to the emergency department for chief complaint of headache and leg numbness. Patient does speak Malay, her daughter is providing translation , I did offer for professional translation, they declined at this time. She states that the patient is having a headache earlier today, with some blurred vision, which has since resolved, but she is then developed numbness in her left leg, with onset about 20 minutes prior to ED arrival, which is new she states it feels heavy and different than it was earlier today. This is a new symptom for her. She had a TIA about 2 months ago, and was evaluated at that time, had carotid duplex that was negative, but did not have MRIs. She denies any other complaints at this time, no confusion, aphasia, difficulty speaking, or slurred speech, or facial droop. Past Medical History: Hypertension, hyperlipidemia, TIA Past Surgical History: Denies surgical history Social History: Denies tobacco, alcohol or drug use Family History: Reviewed and noncontributory for presenting illness Allergies: Reviewed, see documented allergy list. REVIEW OF SYSTEMS: Other than noted above, the 12 point review of systems was reviewed with the patient and were negative, all pertinent findings are included in the HPI. PHYSICAL EXAMINATION: Vital signs reviewed, nursing noted reviewed. GENERAL: Well-appearing, well-nourished and in no acute distress. HEAD: Atraumatic, normocephalic. EYES: Eyes appear normal, extraocular movements intact, sclera anicteric, conjunctiva are normal. ENT: nares patent, oropharynx clear without exudates. Moist mucous membranes. NECK: Normal range of motion, supple without lymphadenopathy LUNGS: Breath sounds clear to auscultation bilaterally and equal. No wheezes rales or rhonchi. HEART: Regular rate and rhythm without murmurs ABDOMEN: Soft, nontender, normoactive bowel sounds. No rebound, guarding, or rigidity. No masses appreciated. EXTREMITIES: Nontender, good range of motion, no pitting or edema. NEUROLOGICAL: Decreased sensation to the left lower extremity from the thigh distally to the ankle compared to the right lower extremity, no other deficits noted. Moves all extremities spontaneously. NIH stroke scale score: 1 PSYCH: Normal mood, normal affect. SKIN: Warm, Dry, normal turgor, no rashes or lesions noted on exposed skin TRAVEL OUTSIDE OF THE [place] IN LAST 30 DAYS: No - Related Data Allergies/Adverse Reactions: No Known Allergies Allergy (Verified 03/16/18 10:37) Past Medical History - Social History Smoking Status: Never Smoker Frequency of alcohol use: None Drug Abuse: None Family History: Reviewed & Not Pertinent Patient has suicidal ideation: No Patient has homicidal ideation: No - Past Medical History Cardiac Medical History: Reports: Hx Hypercholesterolemia Neurological Medical History: Reports: Hx Migraine Renal/ Medical History: Denies: Hx Peritoneal Dialysis Musculoskeletal Medical History: Reports Hx Arthritis Psychiatric Medical History: Reports: Hx Anxiety, Hx Depression Physical Exam - Vital signs Vitals: Temp Pulse Resp BP Pulse Ox 98.0 F 80 14 142/56 H 96 03/16/18 10:39 03/16/18 10:39 03/16/18 10:39 03/16/18 10:39 03/16/18 10:39 Course - Re-evaluation Re-evalutation: Patient seen and examined vital signs reviewed. Laboratory data and imaging were ordered as appropriate for the patient's presenting symptoms and complaint, with consideration of any critical or life threatening conditions that may be associated with their obtained history and exam as noted above. Patient was treated with aspirin 162 mg after negative head CT Results were reviewed when available and demonstrated negative head CT, unremarkable blood work The patient was re-evaluated and was stable, but still having persistent numbness in the left leg, again NIH stroke scale score of 1, no indication for TPA at this time, discussed the risks and benefits with patient and the patient' s daughter, and they agreed that TPA should not be given at this time, but did agree to admission. Evaluation was most consistent with CVA, left leg numbness. Results were discussed with the patient at this point after careful consideration I feel that that patient should be admitted to the hospital. This was discussed with the patient that it is in the best interest for their care to be admitted for further evaluation and management. Patient agreed with this plan of care. A call was placed to the admitted physician, Dr. Rivera who graciously accepted the patient onto their service. *Note is created using voice recognition software and may contain spelling, syntax or grammatical errors. Laboratory 12/03/16/18 03/16/18 11:10 11:10 11:10 WBC 10.1 RBC 4.34 Hgb 13.8 Hct 40.3 MCV 93 MCH 31.8 MCHC 34.3 RDW 12.7 Plt Count 322 Seg Neutrophils % 72.9 Lymphocytes % 19.1 Monocytes % 6.3 Eosinophils % 1.1 Basophils % 0.6 Absolute Neutrophils 7.3 Absolute Lymphocytes 1.9 Absolute Monocytes 0.6 Absolute Eosinophils 0.1 Absolute Basophils 0.1 PT 12.7 INR 0.91 Sodium 141.7 Potassium 4.1 Chloride 99 Carbon Dioxide 26 Anion Gap 17 BUN 17 Creatinine 0.55 Est GFR ( Amer) > 60 Est GFR (Non-Af Amer) > 60 Glucose 113 H Calcium 10.0 Total Bilirubin 0.4 Direct Bilirubin 0.1 Neonat Total Bilirubin Not Reportable Neonat Direct Bilirubin Not Reportable Neonat Indirect Bili Not Reportable AST 27 ALT 19 Alkaline Phosphatase 119 Total Protein 8.[address] 03/16/18 11:01 IMPRESSION: NO ACUTE INTRACRANIAL IMAGING FINDINGS. EVIDENCE OF ACUTE STROKE: NO. - Vital Signs Vital signs: Temp Pulse Resp BP Pulse Ox 98.0 F 80 14 142/56 H 96 03/16/18 10:39 03/16/18 10:39 03/16/18 10:39 03/16/18 10:39 03/16/18 10:39 - Laboratory Result Diagrams: 03/16/18 11:10 03/16/18 11:10 Laboratory results interpreted by me: 03/16/18 11:10 Glucose 113 H - EKG Interpretation by Me Additional EKG results interpreted by me: EKG demonstrates sinus rhythm with a ventricular rate of 90 bpm, normal axis, normal intervals, no evidence of acute ischemia on this EKG, this is compared with prior EKG from 01/06/2018, without significant change. Critical Care Note - Critical Care Note Total time excluding time spent on procedures (mins): 38 Comments: Critical care time 38 exclusive from separate billable procedures for a patient requiring complex medical decision making, and high potential for clinical deterioration. Time spent obtaining history from patient or surrogate, discussions with consultants, development of treatment plan with patient or surrogate, evaluation of patient's response to treatment, examination of patient , ordering and performing treatments and interventions, ordering and review of laboratory studies, re-evaluation of patient's condition, ordering and review of radiographic studies and review of old charts Discharge - Discharge Clinical Impression: Acute CVA (cerebrovascular accident), Numbness in left leg Condition: Stable Disposition: ADMITTED INPATIENT Admitting Provider: Hospitalist - Dr. Rivera Unit Admitted: Telemetry ED NIH Stroke Scale - NIH Stroke Scale When completed:: Before Alteplase *: 1. NIH scale should be completed with appropriate accompanying assessment tools. *: 2. The NIH should reflect what the patient is capable of doing and should not be coached by the clinician. 1a. Level of Consciousness: 0=Alert;keenly responsive -: 1=Drowsy -: 2=Obtunded -: 3=Coma/unresponsive or reflex to noxious stimuli. 1a. Responses: 0 1b. Orientation Questions: a. What month is it? -: b. How old are you? -: 0=Answers both questions correctly. -: 1=Answers one question correctly or patient is intubated or has orotracheal trauma. -: 2=Answers neither question correctly. 1b. Responses: 0 1c. Response to commands: a. Open and close eyes? -: b. Can Reconditioner and release hand? -: Credit is given despite weakness. Demonstration of task is permitted. Substitute command if hands cannot be used. -: 0=Performs both tasks correctly -: 1=Performs one task correctly -: 2=Performs neither task correctly 1c. Responses: 0 2. Gaze: Establish eye contact and instruct patient to "Follow my finger" -: 0=Normal -: 1=Partial gaze palsy. Gaze is abnormal in one or both eyes, but where forced deviation or total gaze paresis is not present. -: 2=Forced deviation or total gaze paresis. 2. Responses: 0 3. Visual Negrete: Sees fingers in all four quadrants. -: 0=No visual loss. -: 1=Partial hemianopsia. -: 2=Complete hemianopsia. -: 3=Bilateral hemianopsia (including Cortical blindness) 3. Responses: 0 4. Facial Movement: Instruct patient to: -: a. Show me your teeth -: b. Raise your eyebrows -: c. Close your eyes -: d. Smile -: 0=Normal symmetrical movement -: 1=Minor paralysis (flattened nasolabial fold, asymmetry on smiling). -: 2=Partial paralysis (total or near total paralysis of lower face). -: 3=Complete paralysis of upper and lower face 4. Responses: 0 5. Motor functions (left arm): Alternate sides and extend each arm with palms down (90 degrees if sitting or 45 degrees for supine). -: 0=No drift;limb holds for full 10 seconds. -: 1=Drift; limb holds but drifts down before full 10 seconds, but does not hit bed. -: 2=Some effort against gravity; limb cannot get to or maintain position. -: 3=No effort against gravity; limb falls. -: 4=No movement. -: UN=Amputation, joint fusion, explain in comments. 5. Responses (left arm): 0 5. Motor Functions (right arm): Alternate sides and extend each arm with palms down (90 degrees if sitting or 45 degrees for supine). -: 0=No drift;limb holds for full 10 seconds. -: 1=Drift; limb holds but drifts down before full 10 seconds, but does not hit bed. -: 2=Some effort against gravity; limb cannot get to or maintain position. -: 3=No effort against gravity; limb falls. -: 4=No movement. -: UN=Amputation, joint fusion, explain in comments. 5. Responses (right arm): 0 6. Motor Functions (left leg): With patient lying supine, alternate sides and extend each leg (30 degrees always while supine). -: 0=No drift, leg holds position for full 5 seconds -: 1=Drift; leg falls before full 5 seconds but does not hit bed. -: 2=Some effort against gravity, leg falls to bed but some effort against gravity. -: 3=No effort against gravity, leg falls to bed immediately. -: 4=No movement. -: UN=Amputation, joint fusion; explain in comments. 6. Responses (left leg): 0 6. Motor Functions (right leg): With patient lying supine, alternate sides and extend each leg (30 degrees always while supine). -: 0=No drift, leg holds position for full 5 seconds -: 1=Drift; leg falls before full 5 seconds but does not hit bed. -: 2=Some effort against gravity, leg falls to bed but some effort against gravity. -: 3=No effort against gravity, leg falls to bed immediately. -: 4=No movement. -: UN=Amputation, joint fusion; explain in comments. 6. Responses (right leg): 0 7. Limb Ataxia: With eyes open instruct patient to: -: a. "Touch your finger to your nose". -: b. "Touch your heel to your knowles" -: 0=Absent -: 1=Present in one limb. -: 2=Present in two limbs. -: UN=Amputation or joint fusion; explain in comments. 7. Responses: 0 8. Sensory: Test sensation using pinprick or noxious stimuli. Test as many body parts as possible. -: 0=Normal;no sensory loss -: 1=Mile to moderate sensory loss (patient feels pin prick but is less sharp on affected side). -: 2=Severe or total sensory loss. 8. Responses: 1 9. Best Language: Instruct patient to: -: a. "Describe what you see in this picture." -: b. "Name the items in this picture." -: c. "Read these sentences." -: 0=No aphasia, normal -: 1=Mild to moderate aphasia. -: 2=Severe aphasia -: 3=Mute, global aphasia, no usable speech or auditory comprehension. 9. Responses: 0 10. Articulation, Dysarthia: Instruct patient to: -: "Read these words" or "Repeat these words" -: 0=Normal -: 1=Mild to moderate; patient may slur some words but can be understood without difficulty. -: 2=Severe; patients speech so slurred as to be unintelligible in the absence of dysphasia. -: UN=Intubated or other physical barrier, explain in comments. 10. Responses: 0 11. Extinction or inattention: 0=No abnormality -: 1= Visual, tactile, auditory, spatial, or personal inattention or extinction to bilateral simulation in one or the sensory modalities. -: 2=Profound anette-inattention or anette-inattention to more than one modality; does not recognize own hand. 11. Responses: 0 Total Score: 1 Notes: Patient on exam had minor and improving symptoms, contraindications and indications for TPA were reviewed, patient is over 18, she does have an ischemic deficit of numbness focally in the left lower extremity, and she is in the window of treatment however the patient symptoms are minor and resolving her NIH stroke scale score is 1, and I feel at this time the risks of alteplase would outweigh the benefit, this was discussed with the patient and the patient' s daughter who is at bedside and they agree with this plan of care. However I feel the patient needs to be observed in the hospital, and admitted, case discussed with the hospitalist. Patient is given aspirin 162mg.
--- NOTE | 2018-03-16 16:59 | PDOC H&P ---
History of Present Illness Admission Date/PCP: 03/16/18 12:45 AKBAR GOMEZ MD Patient complains of: Blurry vision History of Present Illness: FLOR WINSLOW is a 62 year old female who has history of hypertension and dyslipidemia and anxiety. Presents to the emergency room due to acute onset of blurry vision started this morning. She describes flashes of light that lasted for about 3 minutes and disappeared spontaneously. Later on, she experienced tingling and numbness in her left lower extremity from the knee down that is also resolved now. She denied any headache, double vision, gait abnormality, dizziness, lightheadedness, focal weakness or abnormal speech. Apparently she had similar symptoms about a month ago and had a normal CT scan and unremarkable carotid ultrasound. Patient only speaks Norwegian but her daughter was at the bedside was able to translate. Past Medical History Cardiac Medical History: Reports: Hyperlipidema, Hypertension Musculoskeltal Medical History: Reports: Arthritis Psychiatric Medical History: Reports: Depression Social History Smoking Status: Never Smoker Family History Family History: Hypertension Parental Family History Reviewed: Yes Children Family History Reviewed: Yes Sibling(s) Family History Reviewed.: Yes Medication/Allergy Home Medications: Aspirin [Ecotrin 81 mg EC Tablet] 81 mg PO DAILY 03/16/18 Atorvastatin Calcium [Lipitor 20 mg Tablet] 20 mg PO QHS 03/16/18 Metoprolol Succinate [Toprol Xl 25 mg Tab.sr] 25 mg PO DAILY 03/16/18 Sertraline HCl [Zoloft 50 mg Tablet] 50 mg PO DAILY 03/16/18 Allergies/Adverse Reactions: No Known Allergies Allergy (Verified 03/16/18 10:37) Review of Systems All systems: reviewed and no additional remarkable complaints except as stated Physical Exam Vital Signs: Temp Pulse Resp BP Pulse Ox 98.0 F 80 14 142/56 H 96 03/16/18 10:39 03/16/18 10:39 03/16/18 10:39 03/16/18 10:39 03/16/18 10:39 General appearance: PRESENT: no acute distress, cooperative Head exam: PRESENT: atraumatic, normocephalic Eye exam: PRESENT: EOMI, PERRLA. ABSENT: conjunctival injection, nystagmus Ear exam: ABSENT: bleeding, drainage Mouth exam: PRESENT: moist, neck supple Throat exam: ABSENT: post pharyngeal erythema, tonsillar erythema Neck exam: ABSENT: meningismus, tenderness, tracheostomy Respiratory exam: PRESENT: clear to auscultation jair. ABSENT: accessory muscle use Cardiovascular exam: PRESENT: RRR. ABSENT: diastolic murmur, systolic murmur Pulses: PRESENT: normal carotid pulses GI/Abdominal exam: PRESENT: normal bowel sounds, soft. ABSENT: ascites, tenderness Rectal exam: PRESENT: deferred Extremities exam: ABSENT: joint swelling, pedal edema, tenderness Neurological exam: PRESENT: alert, awake, oriented to person, oriented to place , oriented to time, oriented to situation Psychiatric exam: ABSENT: agitated, anxious, depressed Skin exam: PRESENT: dry, intact. ABSENT: abrasion, cyanosis Results Impressions: Head CT 03/16/18 11:01 IMPRESSION: NO ACUTE INTRACRANIAL IMAGING FINDINGS. EVIDENCE OF ACUTE STROKE: NO. Assessment & Plan - Diagnosis (1) TIA (transient ischemic attack) Is this a current diagnosis for this admission?: Yes Plan: Admit patient for observation to telemetry Check MRI of the brain and MRA of the head and neck Check echocardiogram She had unremarkable carotid ultrasound in January (2) Hypertension Is this a current diagnosis for this admission?: Yes Plan: Continue metoprolol monitor blood pressure (3) Dyslipidemia Is this a current diagnosis for this admission?: Yes Plan: Continue statin treatment. Check lipid profile (4) Depression Is this a current diagnosis for this admission?: Yes Plan: Continue sertraline
[2018-03-16] MEDS ORDERED: LORAZEPAM INJ 2 MG/1 ML VIAL IV ONE (18:00)
--- NOTE | 2018-03-16 19:07 | XCELERA REPORT ---
[address] [address] Transthoracic Echocardiogram Report Name: FLOR WINSLOW Age: 62 yrs Gender: Female : 1955 Patient Status: Inpatient Patient Location: [place] [address]^A Study Date: 03/16/2018 01:40 PM Height: 62 in Weight: 132 lb BSA: 1.6 m2 Procedure: A two-dimensional transthoracic echocardiogram with color flow Doppler was performed. Study Quality: Fair. Reason For Study: TIA History: TIA. Ordering Physician: GRETTA CONNORS Performed By: José Luis Palma Interpretation Summary There is no obvious cardiac source of embolus noted on this transthoracic echocardiogram. Follow-up with a [facility]IAN is suggested if cardiac source is still suspected. The right ventricle is normal in size and function. The right atrium is normal. The left atrial size is normal. The interatrial septum is intact with no evidence for an atrial septal defect. There is no Doppler evidence for an interatrial shunt There is no evidence of mitral valve prolapse. There is no vegetation seen on the mitral valve. There is no mitral valve stenosis. There is a trace amount of mitral regurgitation There is no aortic valvular vegetation. There is no aortic valve stenosis There is no LVOT obstruction. There is aortic sclerosis without aortic stenosis. No aortic regurgitation is present. There is no tricuspid stenosis. There is a trace to mild amount of tricuspid regurgitation There is mild pulmonary hypertension by echo RVSP is 39 yo 46 mm of Hg , with RA mean of 5to 10. There is no pulmonic valvular stenosis. There is no pulmonic valvular regurgitation. The left ventricle is normal in size. There is normal left ventricular wall thickness. LV EF is > than 60% Left ventricular systolic function is normal. Doppler measurements suggest normal left ventricular diastolic function : By Tissue Doppler The left ventricular wall motion is normal. There is no thrombus. There is no ventricular septal defect visualized. The aortic root is normal size. The inferior vena cava appeared normal and decreased > 50% with respiration (RAP 5-10 mmHg) There is no pericardial effusion. There is no obvious cardiac source of embolus noted on this transthoracic echocardiogram. Follow-up with a GILLIAN is suggested if cardiac source is still suspected MMode/2D Measurements & Calculations RVDd: 2.8 cm LVIDd: 4.1 cm FS: 30.0 % Ao root diam: 2.7 cm IVSd: 0.69 cm LVIDs: 2.8 cm EDV(Teich): 72.4 ml Ao root area: 5.6 cm2 LVPWd: 0.75 cm ESV(Teich): 30.6 ml LA dimension: 2.4 cm EF(Teich): 57.7 % Doppler Measurements & Calculations MV E max betty: MV P1/2t max betty: Ao V2 max: LV V1 max P.3 cm/sec 94.1 cm/sec 148.9 cm/sec 7.4 mmHg MV A max betty: MV P1/2t: 66.8 msec Ao max P.9 mmHgLV V1 max: 73.3 cm/sec MVA(P1/2t): 3.3 cm2 136.0 cm/sec MV E/A: 0.97 MV dec slope: LV dP/dt: 4544 mmHg/s 412.6 cm/sec2 MV dec time: 0.24 sec PA V2 max: TR max betty: MV P1/2t-pr_phl: 116.0 cm/sec 298.6 cm/sec 66.8 msec PA max P.4 mmHgTR max P.7 mmHg Left Ventricle The left ventricle is normal in size. There is normal left ventricular wall thickness. LV EF is > than 60%. Left ventricular systolic function is normal. Doppler measurements suggest normal left ventricular diastolic function. : By Tissue Doppler. The left ventricular wall motion is normal. There is no thrombus. There is no ventricular septal defect visualized. Right Ventricle The right ventricle is normal in size and function. Atria The right atrium is normal. The left atrial size is normal. The interatrial septum is intact with no evidence for an atrial septal defect. There is no Doppler evidence for an interatrial shunt. Mitral Valve There is no evidence of mitral valve prolapse. There is no vegetation seen on the mitral valve. There is no mitral valve stenosis. There is a trace amount of mitral regurgitation. Aortic Valve There is no aortic valvular vegetation. There is no aortic valve stenosis. There is no LVOT obstruction. There is aortic sclerosis without aortic stenosis. No aortic regurgitation is present. Tricuspid Valve There is no tricuspid stenosis. There is a trace to mild amount of tricuspid regurgitation. There is mild pulmonary hypertension by echo. RVSP is 39 yo 46 mm of Hg , with RA mean of 5to 10. Pulmonic Valve There is no pulmonic valvular stenosis. There is no pulmonic valvular regurgitation. Great Vessels The aortic root is normal size. The inferior vena cava appeared normal and decreased > 50% with respiration (RAP 5-10 mmHg). Effusions There is no pericardial effusion. : GRETTA CONNORS > Sheila Norris
[2018-03-16] MEDS: NORMAL SALINE 1000 ML 1,000 ML IV PRN (20:43)
--- NOTE | 2018-03-16 21:13 | RADIOLOGY REPORT (SQ) ---
EXAM DESCRIPTION: MR BRAIN WITHOUT IV CONTRAST COMPLETED DATE/TME: 03/16/2018 00:00 CLINICAL HISTORY: TIA, left-sided weakness this morning lasting 3 to 4 minutes COMPARISON: 03/16/2018 CT TECHNIQUE: Multiplanar images of the brain were obtained without the administration of intravenous contrast FINDINGS: Ventricles and sulci appear within normal limits for the patient's age. No evidence of midline shift or mass effect. No abnormal parenchymal signal noted. No areas of restricted diffusion to suggest acute infarct. Small amount of high signal in the mastoid air cells on the right correlating with opacification seen on CT examination. No extra axial fluid collection is noted. No masses are seen. Symmetric flow voids in the carotid siphons. Distal vertebral arteries and basilar artery appears small in caliber. IMPRESSION: No evidence of acute infarct No acute abnormalities.
--- NOTE | 2018-03-16 21:17 | RADIOLOGY REPORT (SQ) ---
EXAM DESCRIPTION: MR BRAIN ANGIOGRAPHY WITHOUT IV CONTRAST COMPLETED DATE/TME: 03/16/2018 00:00 CLINICAL HISTORY: 62 years Female TIA left sided weakness this morning lasting 3 to 4 minutes COMPARISON: 03/16/2018 CT. TECHNIQUE: Flow sensitive imaging obtained through the [place] for the purposes of MRA. MIP reformatted images obtained. NASCET criteria utilized for the evaluation of any stenotic lesions. FINDINGS: The distal vertebral arteries are patent and appear relatively small in caliber. The origin of neither PICA is included. Basilar artery is patent and small in caliber. No evidence of posterior communicating artery. Absent right A1. There is a patent anterior communicating artery. No focal occlusion is noted in the [place]. There are occasional areas of irregularity in the peripheral circulation which may be artifactual or related atherosclerotic disease. Other causes of intracranial narrowing or not excluded. IMPRESSION: No acute occlusion is noted in the [place] or proximal branches Absent right A1 with patent anterior communicating artery Areas of irregularity in the peripheral circulation which are nonspecific and may be related to atherosclerotic disease or artifact. Other causes of intracranial narrowing not excluded
[2018-03-16] MEDS ORDERED: ATORVASTATIN CALCIUM 20 MG TABLET PO SCH (22:00)
[2018-03-17 04:53] LABS: HEMATOCRIT 35.5 % (36.0-47.0); HEMOGLOBIN 12.4 g/dL (12.0-15.5); MEAN CORPUSCULAR HEMOGLOBIN 32.3 pg (27.0-33.4); MEAN CORPUSCULAR HGB CONC 34.9 g/dL (32.0-36.0); MEAN CORPUSCULAR VOLUME 93 fl (80-97); PLATELET COUNT 239 10^3/uL (150-450); RED BLOOD COUNT 3.82 10^6/uL (3.72-5.28); RED CELL DISTRIBUTION WIDTH 12.8 % (11.5-14.0); WHITE BLOOD COUNT 8.2 10^3/uL (4.0-10.5)
[2018-03-17 05:19] LABS: ANION GAP 7 (5-19); BLOOD UREA NITROGEN 17 mg/dL (7-20); CALCIUM 9.1 mg/dL (8.4-10.2); CARBON DIOXIDE 28 mmol/L (22-30); CHLORIDE 105 mmol/L (98-107); CHOLESTEROL 145.53 mg/dL (0-200); GLUCOSE 93 mg/dL (75-110); POTASSIUM 3.9 mmol/L (3.6-5.0); SODIUM 139.8 mmol/L (137-145); TRIGLYCERIDES 45 mg/dL (<150)
[2018-03-17 05:32] LABS: DIRECT LDL 109 mg/dL (<100)
--- NOTE | 2018-03-17 07:48 | EKG REPORT ---
SEVERITY:- NORMAL ECG - SINUS RHYTHM : Confirmed by: Sheila Norris MD 17-Mar-2018 07:47:55
[2018-03-17 08:28] VITALS: BP 117/49
[2018-03-17] MEDS: NORMAL SALINE 1000 ML 1,000 ML IV PRN (09:43)
--- NOTE | 2018-03-17 09:46 | PDOC DISCHARGE SUMMARY ---
General - Admit/Disc Date/PCP Admission Date/Primary Care Provider: 03/16/18 12:45 AKBAR GOMEZ MD Discharge Date: 03/17/18 - Discharge Diagnosis (1) TIA (transient ischemic attack) Is this a current diagnosis for this admission?: Yes (2) Hypertension Is this a current diagnosis for this admission?: Yes (3) Dyslipidemia Is this a current diagnosis for this admission?: Yes (4) Depression Is this a current diagnosis for this admission?: Yes - Additional Information Discharge Diet: Cardiac Discharge Activity: Activity As Tolerated Prescriptions: Metoprolol Succinate [Toprol Xl 25 mg Tab.sr] 12.5 mg PO DAILY #15 tab.sr.24h Home Medications: Aspirin [Ecotrin 81 mg EC Tablet] 81 mg PO DAILY 03/16/18 Atorvastatin Calcium [Lipitor 20 mg Tablet] 20 mg PO QHS 03/16/18 Sertraline HCl [Zoloft 50 mg Tablet] 50 mg PO DAILY 03/16/18 Metoprolol Succinate [Toprol Xl 25 mg Tab.sr] 12.5 mg PO DAILY #15 tab.sr.24h History of Present Illness History of Present Illness: FLOR WINSLOW is a 62 year old female who has history of hypertension and dyslipidemia and anxiety. Presents to the emergency room due to acute onset of blurry vision started this morning. She describes flashes of light that lasted for about 3 minutes and disappeared spontaneously. Later on, she experienced tingling and numbness in her left lower extremity from the knee down that is also resolved now. She denied any headache, double vision, gait abnormality, dizziness, lightheadedness, focal weakness or abnormal speech. Apparently she had similar symptoms about a month ago and had a normal CT scan and unremarkable carotid ultrasound. Patient only speaks Bulgarian but her daughter was at the bedside was able to translate. Hospital Course Hospital Course: (1) TIA (transient ischemic attack) Patient was admitted for observation to telemetry MRI of the brain and MRA of the head and neck unremarkable There was no source of emboli on echocardiogram She had unremarkable carotid ultrasound in January (2) Hypertension Blood pressure was low and we decreased metoprolol dose (3) Dyslipidemia Continue statin treatment. LDL was 109 (4) Depression Continue sertraline Patient is stable for discharge. She continued to be asymptomatic throughout hospitalization. She should follow-up with primary care physician after discharge. Physical Exam Vital Signs: Temp Pulse Resp BP Pulse Ox 98.6 F 72 16 117/49 L 97 03/17/18 08:07 03/17/18 08:07 03/17/18 08:07 03/17/18 08:07 03/17/18 08:07 Intake & Output 03/16/18 03/17/18 03/18/18 06:59 06:59 06:59 Intake Total 237 Balance 237 Weight 133 lb 9.602 oz General appearance: PRESENT: no acute distress, cooperative Head exam: PRESENT: atraumatic, normocephalic Eye exam: PRESENT: EOMI, PERRLA. ABSENT: conjunctival injection Mouth exam: PRESENT: moist, neck supple Throat exam: ABSENT: post pharyngeal erythema, tonsillar erythema Neck exam: ABSENT: meningismus, tenderness, tracheostomy Respiratory exam: PRESENT: clear to auscultation jair. ABSENT: accessory muscle use Cardiovascular exam: PRESENT: RRR Pulses: PRESENT: normal carotid pulses GI/Abdominal exam: PRESENT: normal bowel sounds, soft. ABSENT: ascites Rectal exam: PRESENT: deferred Neurological exam: PRESENT: alert, awake, oriented to person, oriented to place , oriented to time, oriented to situation, reflexes normal, CN II-XII grossly intact Psychiatric exam: PRESENT: appropriate affect. ABSENT: homicidal ideation, suicidal ideation Results Laboratory Results: 03/17/18 03:56 03/17/18 03:56 03/17/18 03/17/18 03:56 03:56 WBC 8.2 RBC 3.82 Hgb 12.4 Hct 35.5 L MCV 93 MCH 32.3 MCHC 34.9 RDW 12.8 Plt Count 239 Sodium 139.8 Potassium 3.9 Chloride 105 Carbon Dioxide 28 Anion Gap 7 BUN 17 Creatinine 0.59 Est GFR ( Amer) > 60 Est GFR (Non-Af Amer) > 60 Glucose 93 Calcium 9.1 Triglycerides 45 Cholesterol 145.53 LDL Cholesterol Direct 109 H VLDL Cholesterol 9.0 L HDL Cholesterol 40 Impressions: Brain MRI with MRA 03/16/18 00:00 IMPRESSION: No acute occlusion is noted in the [place] or proximal branches Absent right A1 with patent anterior communicating artery Areas of irregularity in the peripheral circulation which are nonspecific and may be related to atherosclerotic disease or artifact. Other causes of intracranial narrowing not excluded Head MRI 03/16/18 00:00 IMPRESSION: No evidence of acute infarct No acute abnormalities. Head CT 03/16/18 11:01 IMPRESSION: NO ACUTE INTRACRANIAL IMAGING FINDINGS. EVIDENCE OF ACUTE STROKE: NO. Qualifiers - * PATIENT BEING DISCHARGED WITH ANY OF THE FOLLOWING DIAGNOSIS: No
[2018-03-17] MEDS ORDERED: ENOXAPARIN SODIUM INJ 40 MG/0.4 ML DISP.SYRIN SUBCUT SCH (10:00)
[2018-03-17] MEDS ORDERED: METOPROLOL SUCCINATE 25 MG TAB.SR.24H PO SCH (10:00)
[2018-03-17] MEDS ORDERED: ASPIRIN 81 MG TABLET, ENT COATED PO SCH (10:00)
[2018-03-17] MEDS ORDERED: SERTRALINE HCL 50 MG TABLET PO SCH (10:00)
== END 2018-03-17 10:55 | disposition home or self-care (01) ==
LOC: ER 10:36 → EH 12:45 → 3N 17:09
PROVIDERS: ADMIT Family Medicine; ATTEND Family Medicine
DX: G45.9 Transient cerebral ischemic attack, unspecified (principal); I10 Essential (primary) hypertension; E78.5 Hyperlipidemia, unspecified; F32.9 Major depressive disorder, single episode, unspecified; Z79.899 Other long term (current) drug therapy; Z79.82 Long term (current) use of aspirin; Z82.49 Family history of ischemic heart disease and other diseases of the circulatory system; Z86.73 Personal history of transient ischemic attack (TIA), and cerebral infarction without residual deficits; R29.701 NIHSS score 1
CPT/HCPCS: 93005; 99291; 36415 ×2; 85025; 85027; 85610; 80048; 80053; 83036; 80061; 93306; 70551; 70544; 70450; 93010; A9270 ×4; J1650; J2060; J7030 ×2; G0378

== ENCOUNTER → 2018-05-24 | Outpatient (CLI) | payer MEDICARE, MEDICAID | LOC: WI 08:54 | PROVIDERS: ATTEND Surgery | DX: Z53.8 Procedure and treatment not carried out for other reasons (principal) ==